=== PATIENT | female | born 1975 | race Caucasian/White ===

== ENCOUNTER 2019-08-08 14:51 | Emergency (ER) | payer OTHER ==
[~2019-08-08] VITALS: Ht 167.6 cm; Wt 77.1 kg
[2019-08-08] MEDS ORDERED: Norco 5-325 Ta1 EACH PO (15:11)
[2019-08-08] MEDS ORDERED: Zovirax800 MG PO (15:11)
== END 2019-08-08 15:16 | disposition home or self-care (01) ==
LOC: ER 14:51
DX: B02.9 Zoster without complications (principal); F17.200 Nicotine dependence, unspecified, uncomplicated
CPT/HCPCS: 99282

== ENCOUNTER 2019-08-13 18:38 | Emergency (ER) | payer OTHER ==
[~2019-08-13] VITALS: Ht 167.6 cm; Wt 81.7 kg
[~2019-08-13 18:38] MED LIST: Norco 5-325 Ta1 EACH PO; Zovirax800 MG PO
== END 2019-08-13 19:48 | disposition left against medical advice (07) ==
LOC: ER 18:38
DX: Z53.21 Procedure and treatment not carried out due to patient leaving prior to being seen by health care provider (principal)

== ENCOUNTER 2019-10-19 08:03 | Emergency (ER) | payer OTHER ==
[~2019-10-19] VITALS: Ht 167.6 cm; Wt 77.1 kg
[2019-10-19] MEDS ORDERED: INDO50 PO (09:55)
[2019-10-21] MEDS ORDERED: SERT25 (10:08)
[2019-10-21] MEDS ORDERED: ALLERCLEAR10 MG PO (10:16)
[2019-10-25] MEDS ORDERED: SERT50 PO (00:02)
== END 2019-10-19 10:06 | disposition home or self-care (01) ==
LOC: ER 08:03
DX: M79.674 Pain in right toe(s) (principal); H92.01 Otalgia, right ear; F17.200 Nicotine dependence, unspecified, uncomplicated
CPT/HCPCS: 99283; J1100

== ENCOUNTER 2020-02-22 10:25 | Emergency (ER) | payer OTHER ==
[~2020-02-22] VITALS: Ht 170.2 cm; Wt 73.9 kg
[~2020-02-22 10:25] MED LIST changes: +ALLERCLEAR10 MG PO; +INDO50 PO; +SERT25; +SERT50 PO
[2020-02-22] MEDS ORDERED: Ciloxan5 ML RIGHTEAR (15:09)
[2020-02-22] MEDS ORDERED: Ventolin/Prove6.7 GM INH (15:09)
== END 2020-02-22 15:23 | disposition home or self-care (01) ==
LOC: ER 10:25
DX: J20.9 Acute bronchitis, unspecified (principal); H60.91 Unspecified otitis externa, right ear; F32.9 Major depressive disorder, single episode, unspecified; J45.909 Unspecified asthma, uncomplicated; Z88.8 Allergy status to other drugs, medicaments and biological substances; Z87.891 Personal history of nicotine dependence; Z79.899 Other long term (current) drug therapy
CPT/HCPCS: 71046; 99283-25